=== PATIENT | male | born 1985 | race Caucasian/White ===

== ENCOUNTER 2019-11-15 08:07 | Emergency (ER) | payer MEDICAID, SELFPAY ==
[2019-11-15 08:11] VITALS: BP 123/67; PULSE 68; RESP 14; TEMP 36.8; O2SAT 98
--- NOTE | 2019-11-15 08:11 | W.ED.GENAD ---
Discharge Plan Disposition Patient Disposition: HOME Condition: Stable Discharge Details Chief Complaint: EyeProblem Clinical Impression: Corneal abrasion, left Primary Care Provider: None,None ED Provider: Jaime Mae Home Meds and New Rx's Prescriptions: Continued tramadol 50 mg tablet 50 mg PO Q6H PRN (Reason: pain) Qty: 12 RF: 0 ibuprofen 600 MG tablet 600 mg PO Q6H PRN PRNQty: 30 RF: 1 acetaminophen [Acephen] 650 MG suppository 650 mg DC Q6H PRN PRNQty: 30 RF: 0 No Action diazepam [Valium] 10 mg tablet 10 mg PO ONCE PRN (Reason: premedication) Qty: 1 RF: 0 Discharge Instructions Instructions: Corneal Abrasion (ED) Additional Instructions: I recommend you continue erythromycin ointment 4 times daily for 5 to 7 days time. Please go directly to [facility] for further evaluation. Tylenol and ibuprofen as needed for pain. Medical Decision Making 33-year-old male who was [place] in the left [place] He presents with left eye pain, watery discharge, no other complaint other than infrequent medical care and does not recall last tetanus shot. Visual acuity per nursing note L 20/25 R 20/50. Anesthetized, irrigated, examined with slit lamp and fluorescein. He has superficial corneal abrasions left, the most impressive is superior to the axis of vision. There is no Jordan sign. Tetanus updated. Erythromycin ointment instilled. Follow-up arranged with [facility]. Patient to be discharged for follow-up at [facility] today. HPI General Mode of arrival: ambulatory. Date/Time Provider Initiated Documentation: 11/15/19 08:10. Limitations to Documentation: no limitations. Information obtained by: patient. History of Present Illness 33 year old M presents to the emergency department with the chief complaint of Hit in left eye by cow tail, described as moderate, Quality is described as dull and constant, and is localized to the face, eyes and left. Patient reports no radiation. Patient started experiencing this minute(s) and it has been constant. No relieving factors improve symptom(s), Patient notes no other symptoms.. Patient did receive the following treatments prior to arrival, none Related Data Home Medications Medication Instructions Recorded Confirmed acetaminophen [Acephen] 650 mg DC Q6H PRN PRN #30 supp 04/01/17 03/29/18 ibuprofen 600 mg PO Q6H PRN PRN #30 tab 04/01/17 03/29/18 diazepam 10 mg tablet 10 mg PO ONCE PRN #1 tab 03/29/18 03/29/18 tramadol 50 mg tablet 50 mg PO Q6H PRN #12 tab 05/06/18 05/06/18 Previous Rx's Medication Instructions Recorded acetaminophen [Acephen] 650 mg DC Q6H PRN PRN #30 supp 04/01/17 ibuprofen 600 mg PO Q6H PRN PRN #30 tab 04/01/17 diazepam 10 mg tablet 10 mg PO ONCE PRN #1 tab 03/29/18 tramadol 50 mg tablet 50 mg PO Q6H PRN #12 tab 05/06/18 Allergies Allergy/AdvReac Type Severity Reaction Status Date / Time No Known Allergies Allergy Unverified 11/15/19 08:16 Review of Systems Narrative: Otherwise healthy young man. 6 systems reviewed and otherwise negative [facility] Medical History Closed right ankle fracture Gastroenteritis and colitis, viral Inguinal hernia unilateral, non-recurrent Surgical History (Updated 02/09/18 @ 14:35 by [employer] [place]) Repair of inguinal hernia (04/01/17) Family History (Updated 03/02/17 @ 11:47 by Margret Rivera MD) Other Essential hypertension Heart disease Hyperlipidemia Thyroid cancer Social History Smoking/Tobacco Use Status: Former Tobacco Use Alcohol Intake: current Drug use: Never Substance use type: does not use Do you feel safe at home: Yes Do you feel safe in your relationship?: Yes Exam Narrative Exam Narrative: GEN: awake, alert, oriented 3. Pleasant, well groomed, interactive. HEAD: Normocephalic, atraumatic ENT: Mucous membranes moist, oropharynx unremarkable, External ear exam unremarkable EYES: PERRL, EOMI. the left eye is injected. Right eye unremarkable, left eye with numerous superficial corneal abrasions, most impressive in the midline superior to the axis of vision. No Jordan sign. No foreign body seen. NECK: Full ROM, no ESE, no menigismus EXT: Full ROM, no edema, no rash Neuro: Grossly normal neurologic exam, conversant, interactive. Psych: Speech fluent, thoughts congruent, affect normal
[2019-11-15] MEDS: Tetracaine 0.5% 4 ML BTL OP (08:23)
[2019-11-15] MEDS: Balanced Salt Solution 15 ML BTL OP (08:23)
[2019-11-15] MEDS: Fluorescein STRIPS 100/BOX 1 MG OP (08:23)
[2019-11-15] MEDS: Erythromycin Ophth Oint 3.5 GM TUBE OP (08:37)
== END 2019-11-15 08:46 | disposition home or self-care (01) ==
PROVIDERS: Emergency Provider Emergency Medicine
DX: S05.02XA Injury of conjunctiva and corneal abrasion without foreign body, left eye, initial encounter (principal); W55.29XA Other contact with cow, initial encounter
CPT/HCPCS: 90471; 99284; 99283